=== PATIENT | female | born 1970 | race Caucasian/White ===

== ENCOUNTER 2019-02-09 17:52 | Emergency (ER) | payer MEDICARE ==
[~2019-02-09] VITALS: Ht 162.6 cm; Wt 73.5 kg
[2019-02-09 21:23] VITALS: BP 123/71
== END 2019-02-09 21:27 | disposition home or self-care (01) ==
LOC: ER 17:52
DX: F41.9 Anxiety disorder, unspecified (principal); M25.571 Pain in right ankle and joints of right foot; Z76.0 Encounter for issue of repeat prescription; I25.10 Atherosclerotic heart disease of native coronary artery without angina pectoris; Z88.0 Allergy status to penicillin; Z88.8 Allergy status to other drugs, medicaments and biological substances
CPT/HCPCS: 73610; 99283; J7030